=== PATIENT | male | born 1970 | race Two or more races ===

== ENCOUNTER 2018-04-14 22:22 | Emergency (ER) | payer MEDICARE, MEDICAID ==
[~2018-04-14] VITALS: Ht 167.6 cm; Wt 90.7 kg
[~2018-04-14 22:22] MED LIST: ABILIFY2 MG ORAL; BACITRACIN3.5 GM OP; BACTRIM DS TAB1 EAC1 ORAL; BENADRYL25 MG ORAL; LIBRIUM25 MG ORAL
[2018-04-14 22:45] VITALS: BP 117/72
--- NOTE | 2018-04-14 22:50 | NUR ---
ER Nurse Note: Pt BIBA c/o chest pain. Per EMS, pt was found in the street, chest pain radiates to the left arm and abdomen. S1 and S2 heard, cap refill less than 3 sec. Pt does not complain of pain. VSS except HR of 112, no signs of distress. Pt has flushed face; intoxicated, pt stated he drinks a bottle of vodka a day and takes meth. Pt currently asleep. ERMD at pt side; will continue to [facility].
[2018-04-14 22:51] LABS: BASOPHILS % (AUTO) 2.4 % (0.0-2.0); EOSINOPHILS % (AUTO) 2.4 % (0.0-3.0); HEMATOCRIT 43.5 % (42.0-52.0); HEMOGLOBIN 14.3 G/DL (14.2-18.0); LYMPHOCYTES % (AUTO) 34.6 % (20.0-45.0); MEAN CORPUSCULAR VOLUME 95 FL (80-99); MONOCYTES % (AUTO) 9.3 % (1.0-10.0); NEUTROPHILS % (AUTO) 51.3 % (45.0-75.0); PLATELET COUNT 204 K/UL (150-450); RED BLOOD COUNT 4.59 M/UL (4.70-6.10); RED CELL DISTRIBUTION WIDTH 13.2 % (11.6-14.8); WHITE BLOOD COUNT 5.7 K/UL (4.8-10.8)
--- NOTE | 2018-04-14 22:53 | Emergency Room Report ---
History of Present Illness General Chief Complaint: Chest Pain Source: Patient Present Illness HPI Patient is a 47-year-old male brought in by EMS after increased chest discomfort. Patient reports having recent heavy alcohol use. He reports drinking vodka daily. Patient had been given 1 spray of nitroglycerin and aspirin by EMS due to chest discomfort. He reports having some episodes of stool discoloration. He reports having intermittent vomiting. He denies any current shortness of breath. Patient states that he had no prior cardiac history but has hepatitis C as well as prior history of alcohol abuse. Allergies: Coded Allergies: IBUPROFEN (Unverified Allergy, Unknown, 04/14/18) Patient History Reviewed Nursing Documentation: PMH: Agreed; PSxH: Agreed Nursing Documentation-PMH Past Medical History: No History, Except For Hx Hypertension: Yes History Of Psychiatric Problem: Yes - schiz Review of Systems All Other Systems: negative except mentioned in HPI Physical Exam Vital Signs Date Time Temp Pulse Resp B/P (MAP) Pulse Ox O2 Delivery O2 Flow Rate FiO2 04/14/18 22:18 98.8 113 16 117/72 100 Room Air Medical Decision Making Last Vital Signs Date Time Temp Pulse Resp B/P (MAP) Pulse Ox O2 Delivery O2 Flow Rate FiO2 04/14/18 22:45 98.8 100 16 117/72 100 Room Air Angel Norris MD Apr 14, 2018 22:53
[2018-04-14 23:01] LABS: ANION GAP 12 mmol/L (5-15); BLOOD UREA NITROGEN 10 mg/dL (7-18); CARBON DIOXIDE 26 MMOL/L (21-32); CHLORIDE 108 MMOL/L (98-107); CREATININE 0.9 MG/DL (0.55-1.30); POTASSIUM 3.4 MMOL/L (3.5-5.1); SODIUM 146 MMOL/L (136-145)
[2018-04-14 23:14] LABS: ALANINE AMINOTRANSFERASE 167 U/L (12-78); ALBUMIN 3.1 G/DL (3.4-5.0); ALBUMIN/GLOBULIN RATIO 0.7 (1.0-2.7); ALKALINE PHOSPHATASE 112 U/L (46-116); ASPARTATE AMINO TRANSFERASE 126 U/L (15-37); BILIRUBIN,TOTAL 0.2 MG/DL (0.2-1.0); CKMB 12.5 NG/ML (0.0-3.6); CREATINE KINASE 536 U/L (26-308)
[2018-04-15 01:34] VITALS: BP 120/74
--- NOTE | 2018-04-15 01:35 | NUR ---
ER Nurse Note: Pt asleep, no signs of distress; denies pain. IV patent. All safety measures met; will continue to [facility].
[2018-04-15] MEDS ORDERED: LORazepam Inj 2mg/ml 1ml IV ONE (03:30)
[2018-04-15 04:37] VITALS: BP 126/76
--- NOTE | 2018-04-15 04:39 | NUR ---
ER Nurse Note: Pt asleep, no signs of distress, VSS, no complains of pain. Pt chest rise and fall noticed. Awaiting further plan of care from ERMD. All orders completed per ERMD orders. Will continue to [facility].
[2018-04-15 06:20] VITALS: BP 126/76
--- NOTE | 2018-04-15 06:22 | NUR ---
ER Nurse Note: Pt seen, treated, medically cleared for discharge by ERMD. Discharge instructions given with repeat verbalization by pt. Instructed pt to follow up wtih primary care provider within one week. Pt a&ox4, VSS, no signs of distress. ID band removed, IV removed; site clean and bandaged. Left wtih all belongings via own transportation
--- NOTE | 2018-04-15 10:17 | Diagnostic Imaging Report ---
Indication: Chest pain Technique: One view of the chest Comparison: None Findings: Body habitus somewhat limits evaluation. The heart is mildly enlarged. There is borderline interstitial congestion. No effusions Impression: Cardiomegaly and interstitial congestive change.
--- NOTE | 2018-04-15 17:23 | Cardiology Report ---
APPROVED REPORT EKG Measurement Heart [id number] Sinus tachycardia Otherwise normal ECG
== END 2018-04-15 06:23 | disposition home or self-care (01) ==
LOC: EDBD 22:22 → EMR 22:38
DX: R07.89 Other chest pain (principal); I10 Essential (primary) hypertension; F20.9 Schizophrenia, unspecified; Z88.6 Allergy status to analgesic agent
CPT/HCPCS: 36415; 71045; 80053; 82550; 82553; 83690; 83880; 84484; 85025; 93005; 96365; 96375; 99284; G0480; 80329